=== PATIENT | female | born 1960 | race Caucasian/White ===

== ENCOUNTER 2023-03-28 09:07 | Outpatient (REF) | payer MEDICAID, SELFPAY ==
[2023-03-28 15:59] LABS: Alanine Aminotransferase 17 U/L (0-31); Albumin Level 4.3 g/dL (3.5-5.0); Alkaline Phosphatase 54 U/L (39-117); Anion Gap 16 (12-20); Aspartate Amino Transferase 16 U/L (5-31); Bilirubin Total 0.5 mg/dL (0.0-1.0); Blood Urea Nitrogen 12 mg/dL (9-16); Calcium 9.3 mg/dL (8.4-10.2); Carbon Dioxide 27 mmol/L (22-29); Chloride 105 mmol/L (96-108); Cholesterol 249 mg/dL; Estimated Glomerular Filt Rate > 60; Glucose Fasting 88 mg/dL (60-99); HDL Cholesterol 61 mg/dL; LDL Cholesterol Calculated 153 mg/dl; Potassium 4.3 mmol/L (3.3-5.1); Sodium 144 mmol/L (135-145); Total Protein 7.3 g/dL (6.5-8.0); Triglycerides 178 mg/dL
== END 2023-03-28 09:08 | disposition home or self-care (01) ==
LOC: HO.CHCLDS 09:07
PROVIDERS: Visit Provider Internal Medicine
DX: I10 Essential (primary) hypertension (principal)
CPT/HCPCS: 36415; 80053; 80061

== ENCOUNTER 2024-03-06 09:12 | Outpatient (REF) | payer MEDICAID, SELFPAY ==
[2024-03-06 14:46] LABS: MANUAL DIFF FLAG NO
[2024-03-06 14:58] LABS: Basophils Percent Auto 0.8 % (0-2); Eosinophils Absolute Auto 0.1 X10*3/uL (0.0-0.4); Eosinophils Percent Auto 2.8 % (0-4); Hematocrit 38.7 % (37.0-47.0); Hemoglobin 12.1 g/dl (12.0-16.0); Imm Gran Abs Auto 0.01 X10*3/uL (0.00-0.03); Imm Gran Pct Auto 0.3 % (0.0-0.4); Lymphocytes Absolute Auto 2.2 X10*3/uL (1.2-4.9); Lymphocytes Percent Auto 55.8 % (20-40); Mean Corpuscular HGB Conc 31.3 g/dl (31.0-35.0); Mean Corpuscular Hemoglobin 24.4 pg (27.0-33.0); Mean Corpuscular Volume 78.2 fL (80.0-98.0); Mean Platelet Volume 10.6 fL (9.4-12.3); Monocytes Absolute Auto 0.4 X10*3/uL (0.1-1.2); Neutrophils Absolute Auto 1.3 x10*3/uL (2.0-8.3); Neutrophils Percent Auto 31.3 % (45-73); Platelet Count 380 X10*3/uL (160-400); Red Blood Count 4.95 X10*6/uL (4.20-5.50); Red Cell Distribution Width 13.9 % (11.0-16.0)
[2024-03-06 15:27] LABS: Alanine Aminotransferase 18 U/L (0-31); Albumin Level 4.3 g/dL (3.5-5.0); Alkaline Phosphatase 55 U/L (39-117); Anion Gap 11 (12-20); Aspartate Amino Transferase 16 U/L (5-31); Bilirubin Total 0.4 mg/dL (0.0-1.0); Blood Urea Nitrogen 13 mg/dL (9-16); Calcium 9.4 mg/dL (8.4-10.2); Carbon Dioxide 30 mmol/L (22-29); Chloride 105 mmol/L (96-108); Cholesterol 210 mg/dL (<200); Estimated Glomerular Filt Rate > 60; Glucose Random 126 mg/dL (60-115); HDL Cholesterol 55 mg/dL (>40); LDL Cholesterol Calculated 127 mg/dL (<100); Potassium 3.8 mmol/L (3.3-5.1); Sodium 142 mmol/L (135-145); Total Protein 7.2 g/dL (6.5-8.0); Triglycerides 140 mg/dL (<150)
[2024-03-06 15:29] LABS: TSH reflex Free T4 0.24 uIU/mL (0.32-4.0)
[2024-03-06 16:33] LABS: Free T4 (Free Thyroxine) 0.91 ng/dL (0.71-1.85)
== END 2024-03-06 09:13 | disposition home or self-care (01) ==
LOC: HO.CHCLDS 09:12
PROVIDERS: Visit Provider Internal Medicine
DX: I10 Essential (primary) hypertension (principal)
CPT/HCPCS: 36415; 80053; 80061; 84439; 84443; 85025

== ENCOUNTER 2024-05-09 08:39 | Outpatient (AMB) | payer MEDICARE, MEDICAID, SELFPAY ==
--- NOTE | 2024-05-09 07:51 | MHC.OFFVIS ---
Intake Visit Reasons: Former Smoker HPI HPI Former Smoker: Details: Initial visit for this 63yo former smoker with a 50+PYH. Patient started smoking at age 19 for 39 years at 1.5ppd. She quit in 2019. . Denies marijuana use. Denies second hand smoke exposure. Denies exposure to chemicals or substances like asbestos. . Denies known family history of lung cancer. Denies personal history of cancers. Denies chest CT in last year. . Denies recent travel outside the [place]. Denies recent respiratory illness or recent hospitalization for respiratory issues. Denies testing positive for COVID. Admits receiving COVID Vaccine. x 3. . Denies fever, chills, new/worsening cough, hemoptysis, hoarseness or dysphagia. Denies significant chest pain, significant dyspnea or unintentional weight loss. Patient Lung Cancer Screening Questionnaire reviewed with patient by provider. . Shared Decision Making Completed. Patient meets criteria. Discussed in detail with patient, the risk vs benefit of LDCT screening. Patient consents to proceed with scan. Discussed smoking cessation. PFSH Medical History (Updated 05/09/24 @ 09:06 by Georgiana Mixon PA-C) Hypertension Personal history of nicotine dependence Surgical History (Updated 05/09/24 @ 08:58 by Georgiana Mixon PA-C) History of pubovaginal sling Social History (Updated 05/09/24 @ 09:06 by Georgiana Mixon PA-C) Patient Tobacco Use Status: Former Tobacco user Years Smoked: (onset 19yo, 1.5ppd x 39yrs, 50+PYH, quit 2019) Assessment & Plan Assessment & Plan (1) Personal history of nicotine dependence: Comment: (onset 19yo, 1.5ppd x 39yrs, 50+PYH, quit 2019) Code(s): Z87.891 - Personal history of nicotine dependence Category: Medical Plan: - SDM visit completed today in office. - Patient meets criteria for LDCT for lung cancer screening purposes and is asymptomatic. - Smoking cessation counseling offered. Patients can always call [phone]. - Will arrange for a LDCT scan of the chest for screening purposes at [facility]. - Risks, benefits, and alternatives were discussed in detail and the patient agrees to proceed. - Risks discussed include but are not limited to: radiation exposure, anxiety during testing and while awaiting results, false negatives, false positives and possibility of additional intervention such as further imaging or surgical procedures for benign disease. - Benefits are obviously detection of lung cancer at an early stage which can lead to improved outcomes. - Discussed the importance of screening program compliance with adherence to yearly LDCT scan as scheduled - or sooner interval scans for personalized screening regimen. - Discussed follow up plan. Our office will send a letter discussing results and if needed set up phone call and office visit based on CT findings. - Patient educated on results categorization and the management decisions for suspicious findings potentially found on the screening LDCT scan. Any patient with a Lung RADS score of 3 or 4 will be reviewed by a multidisciplinary team at [facility] to form a plan of action in regards to scan findings. - If further work up is warranted for a suspicious lung finding this will be followed by the Lung Cancer Screening program in conjunction with the Thoracic Surgery Department at [facility]. - A copy of the office note and LDCT will be sent to the patient's PCP - as well as documentation on any associated further plans of care. - Incidental findings on LDCT are the PCP's responsibility. These findings are indicated with an S finding on the LDCT Assessment. A note discussing the findings will be sent to the PCP who is then responsible for further management. - All questions answered.? Coding Level of Care Code Lung Cancer Screening G0296 Diagnoses Personal history of nicotine dependence Z87.891
== END 2024-05-09 09:38 | disposition home or self-care (01) ==
PROVIDERS: PCP Internal Medicine; Visit Provider Physician Assistant Medical
DX: Z87.891 Personal history of nicotine dependence (principal)
CPT/HCPCS: G0296

== ENCOUNTER 2024-05-09 09:05 | Outpatient (REF) | payer MEDICARE, MEDICAID, SELFPAY ==
--- NOTE | ~2024-05-09 | CT_ITS ---
EXAMINATION: CT LOW-DOSE SCREENING CHEST WITHOUT CONTRAST CLINICAL INFORMATION: Personal history of nicotine dependence. The patient has a 117 pack-year history of smoking, having quit 5 years ago. COMPARISON: None available. TECHNIQUE: Multidetector volumetric CT imaging of the chest is performed on a Siemens SOMATOM Definition scanner without contrast using low dose technique. Additional 2D coronal and sagittal reformatted images and axial 3D maximum intensity projection (MIP) images are generated on the CT workstation. This CT examination was performed using dose optimization techniques as appropriate, variously including the following: *Automated exposure control. *Adjustment of mA and/or kV according to patient size (this includes techniques or standardized protocols for targeted exams where dose is matched to indication/reason for exam; i.e. extremities or head). *Use of iterative reconstruction technique. TOTAL EXAM DLP: 69 mGy-cm. CTDIvol: 2.13 mGy. FINDINGS: PULMONARY NODULES: 3 small punctate nodules are seen, none over 3 mm in size 07/07/2024. No suspicious pulmonary nodules. LUNGS: Lungs bilaterally symmetrically expanded. There is mild emphysema and bronchial thickening. No effusion or pneumothorax. Central airways patent. MEDIASTINUM: No mediastinal, hilar or axillary adenopathy or free fluid collection. CORONARY ARTERY CALCIFICATION: None visualized on this study. THYROID GLAND: Unremarkable to the extent seen. CARDIOVASCULAR STRUCTURES: Aortic and heart size normal. No pericardial effusion. CHEST WALL/AXILLA: Unremarkable. Large calcifications seen in the right breast. UPPER ABDOMEN: There is hepatic steatosis. Included portions of the solid organs in the upper abdomen otherwise unremarkable on noncontrast imaging. OSSEOUS STRUCTURES: No suspicious focal findings. CT/CT lung screening IMPRESSION: No findings seen suspicious for malignancy. ASSESSMENT: 1. Lung-RADS Category 2: Benign appearance or behavior of nodules. N/A. 2. Lung-RADS Category S: Negative. There are no clinically significant or potentially clinically significant findings not related to the lungs requiring urgent additional evaluation. RECOMMENDATION: Continued routine annual low-dose CT lung screening in 1 year is recommended. An order for CT CHEST LOW DOSE CANCER SCREENING ([id number]) can be placed. Electronically signed by: Esau Diego MD 07/08/2024 11:36 PM [facility]
== END 2024-05-09 09:06 | disposition home or self-care (01) ==
LOC: HO.CT 09:05
PROVIDERS: PCP Internal Medicine; Visit Provider Physician Assistant Medical
DX: Z12.2 Encounter for screening for malignant neoplasm of respiratory organs (principal); Z87.891 Personal history of nicotine dependence
CPT/HCPCS: 71271; G0296

== ENCOUNTER 2024-11-20 08:23 | Outpatient (REF) | payer MEDICARE, MEDICAID, SELFPAY ==
[2024-11-20 14:17] LABS: Basophils Percent Auto 0.8 % (0-2); Eosinophils Absolute Auto 0.1 X10*3/uL (0.0-0.4); Eosinophils Percent Auto 2.9 % (0-4); Hematocrit 38.2 % (37.0-47.0); Hemoglobin 11.9 g/dl (12.0-16.0); Lymphocytes Absolute Auto 2.4 X10*3/uL (1.2-4.9); MANUAL DIFF FLAG SCAN; Mean Corpuscular HGB Conc 31.2 g/dl (31.0-35.0); Mean Corpuscular Hemoglobin 24.1 pg (27.0-33.0); Mean Corpuscular Volume 77.3 fL (80.0-98.0); Mean Platelet Volume 10.2 fL (9.4-12.3); Monocytes Absolute Auto 0.4 X10*3/uL (0.1-1.2); Monocytes Percent Auto 11.5 % (2-11); Neutrophils Absolute Auto 0.9 x10*3/uL (2.0-8.3); Neutrophils Percent Auto 22.8 % (45-73); Platelet Count 356 X10*3/uL (160-400); Red Blood Count 4.94 X10*6/uL (4.20-5.50); Red Cell Distribution Width 14.1 % (11.0-16.0); SCAN SMEAR FLAG 1; White Blood Count 3.8 X10*3/uL (4.8-10.8)
[2024-11-20 14:41] LABS: Alanine Aminotransferase 17 U/L (0-31); Albumin Level 4.2 g/dL (3.5-5.0); Anion Gap 9 (12-20); Aspartate Amino Transferase 21 U/L (5-31); Bilirubin Total 0.4 mg/dL (0.0-1.0); Blood Urea Nitrogen 13 mg/dL (9-16); Carbon Dioxide 28 mmol/L (22-29); Chloride 108 mmol/L (96-108); Cholesterol 200 mg/dL (<200); Estimated Glomerular Filt Rate > 60; Glucose Random 98 mg/dL (60-115); HDL Cholesterol 61 mg/dL (>40); LDL Cholesterol Calculated 120 mg/dL (<100); Potassium 3.8 mmol/L (3.3-5.1); Sodium 141 mmol/L (135-145); Total Protein 6.8 g/dL (6.5-8.0); Triglycerides 98 mg/dL (<150)
[2024-11-20 14:52] LABS: Alkaline Phosphatase 54 U/L (39-117)
[2024-11-20 14:56] LABS: SLIDE REVIEW VERIFIED
== END 2024-11-20 08:24 | disposition home or self-care (01) ==
LOC: HO.CHCLDS 08:23
PROVIDERS: Visit Provider Internal Medicine
DX: I10 Essential (primary) hypertension (principal)
CPT/HCPCS: 36415; 80053; 80061; 85025

== ENCOUNTER 2024-11-26 08:19 | Outpatient (REF) | payer MEDICARE, MEDICAID, SELFPAY ==
--- OUTSIDE RECORDS SUMMARY | 2024-11-26 08:30 | XMS_ITS | Encounter Summary ---
Author Organization [facility] Address [address] [place] [address] Care Team Providers Care Net Developer Contract Name Role Phone Enrico Jesus MD Primary Care Prov ider Encounter Details Date Type Department Care Team (Latest Contact Info) Description 10/02/2018 Abstract [facility] CONVERSIONS Dental, Provider, DDS Social History Tobacco Use Types Packs/Day Years Used Date Smoking Tobacco: Never Assessed Comments Unknown Sex and Gender Information Value Date Recorded Sex Assigned at Female 06/26/2022 10:34 AM EDT Legal Sex Female 10:34 AM EDT Gender Identity Female 06/26/2022 10:34 AM EDT Sexual Orientation Straight 06/26/2022 10 :34 AM EDT documented as of this encounter Plan of Treatment Upcoming Encounters Date Type Department Care Team (Late st Contact Info) Description 02/02/2025 9:30 AM EDT Office Visit [facility] MED & PEDS [address] [place] [address] Enrico Jesus MD [address] [place] [address] documented as of this encounter Visit Diagnoses Not on filedocumented in this encounter Care Teams Net Developer Contract Relationship Specialty Start Date End Date Enrico Jesus MD [address] [place] [address] PCP - General Internal Medicine 11/05/19 documented as of this encounter
--- OUTSIDE RECORDS SUMMARY | 2024-11-26 08:30 | XMS_ITS | Encounter Summary ---
Author Organization [employer] Address [address] [facility] 7t [place] [address] Care Team Providers Care Pasteurizer Name Role Phone Enrico Jesus MD Primary Care Prov ider Reason for Visit * Reason Comments Med Refill Encounter Details Date Type Department Care Team ([facility] st Contact Info) Description 08/04/2024 Refill [facility] CH[facility] MED & PEDS [address] [place], [place] [phone] Enrico Jesus MD [address] [place] [address] Social History Tobacco Use Types Packs/Day Years Used Date Smoking Tobacco: Former Cigarettes 2016 Smokeless Tobacco: Never Alcohol Use Standard Drinks/Week Comments Never 0 (1 standard drink = 0.6 oz pur e alcohol) Alcohol Answer Date Recorded Frequency of Alcohol Consumption Not on file 06/23/2024 Average Number of Drinks Not on file 024 Frequency of Binge Drinking Not on file 05/28 Score 0 06/23/2024 Depression Answer Date Recorded Patient Health Questionnaire-9 Score 0 12/12/2023 Patient Health Questionnaire-9 Score 0 12/12/2023 Last PHQ-9: Questionnaire Data Not on file 0 12/12/2023 Housing Stability Answer Date Recorded What is your housing situation today? I have rolando aguilera 12/12/[address] you li ve. Do you have problems with any of the following? None of the above 12/12/2023 Food Insecurity Answer Date Recorded Within the past 12 months, y ou worried that your food would run out before you got money to buy more: Never True 12/12/2023 Within the past 12 months,th e food you bought just didn't last and you didn't have enough money to get more: Never True Transportation Answer Date Recorded In the past 12 months, has l ack of transportation kept you from medical appts, meetings, work or from getting things needed for daily living? No 12/12/2023 Utilities Answer Date Recorded In the past 12 months, has t he electric, gas, oil or water company threatened to shut off services in your home? No 12/12/2023 Depression Answer Date Recorded Patient Health Questionnaire-2 Score 0 12/12/2023 Comments Unknown Sex and Gender Information Value [...] Description 02/02/2025 9:30 AM EDT Office Visit [facility] CH[facility] MED & PEDS [address] [place] [address] Enrico Jesus MD [address] [place] [address] documented as of this encounter Visit Diagnoses Not on filedocumented in this encounter Additional Health Concerns Assessment Noted Time PHQ-9 Depression Total Score: 0 12/12/19 24 9:32 AM EDT documented as of this encounter Care Teams Pasteurizer Relationship Specialty Start Date End Date Enrico Jesus MD [address] [place] [address] PCP - General Internal Medicine 11/05/19 documented as of this encounter
--- OUTSIDE RECORDS SUMMARY | 2024-11-26 08:30 | XMS_ITS | Encounter Summary ---
Author Organization [employer] Address [address] [place] [address] Care Team Providers Care Sales And Service Engineer Name Role Phone Enrico Jesus MD Primary Care Prov ider Encounter Details Date Type Department Care Team ([facility] Contact Info) Description 11/21/2024 Orders Only [facility] CHC MED & PEDS [address] [place], [place] [phone] Enrico Jesus MD [address] [place] [address] Social History Tobacco Use Types Packs/Day Years [...] Description 02/02/2025 9:30 AM EDT Office Visit [facility] MED & PEDS [address] [place] [address] Enrico Jesus MD [address] [place] [address] documented as of this encounter Visit Diagnoses Not on filedocumented in this encounter Additional Health Concerns Assessment Noted Time PHQ-9 Depression Total Score: 0 12/12/19 24 9:32 AM EDT documented as of this encounter Care Teams Sales And Service Engineer Relationship Specialty Start Date End Date Enrico Jesus MD [address] [place] [address] PCP - General Internal Medicine 11/05/19 documented as of this encounter
--- OUTSIDE RECORDS SUMMARY | 2024-11-26 08:30 | XMS_ITS | Encounter Summary ---
Author Organization [employer] Address [address] [facility] [address] [place] [address] Care Team Providers Care Evening Or Night Nurse Supervisor Name Role Phone Enrico Jesus MD Primary Care Prov ider Reason for Visit * Reason Onset Date Comments FYI 12/12/2023 Encounter Details Date Type Department Care Team ([facility] Contact Info) Description 12/12/2023 Telephone [facility] CHC MED & PEDS [address] [place] [address] Enrico Jesus MD [address] [place] [address] FYI Social History Tobacco Use Types Packs/Day Years Used Date Smoking Tobacco: Former Cigarettes 2016 Smokeless Tobacco: Never Alcohol Use Standard Drinks/Week Comments Never 0 (1 standard drink = 0.6 oz pur e alcohol) Depression Answer Date Recorded Patient Health Questionnaire-9 [...] AM EDT documented as of this encounter Miscellaneous Notes * Telephone Encounter - Monik Gauthier RN - 01/23/2024 9:36 AM EDT TC X1 to pt to inform of need to schedule and appt with PCP to discuss wegovy. LVM to return call to nurses. * Telephone Encounter - Carly Vu - 12/12/2023 3:19 PM EDT Tc from pt calling in regards to wegovy discuss during tele appointment today (12/11). [facility] and was advised insurance will cover medication. documented in this encounter Plan of Treatment Upcoming Encounters Date Type Department Care Team (Late st Contact Info) Description 02/02/2025 9:30 AM EDT Office Visit [facility] MED & PEDS [address] [place] [address] Enrico Jesus MD [address] [place] [address] documented as of this encounter Visit Diagnoses Not on filedocumented in this encounter Additional Health Concerns Assessment Noted Time PHQ-9 Depression Total Score: 0 12/12/19 24 9:32 AM EDT documented as of this encounter Care Teams Evening Or Night Nurse Supervisor Relationship Specialty Start Date End Date SolizEnrico James MD [address] [place] [id number] PCP - General Internal Medicine 11/05/19 documented as of this encounter
--- OUTSIDE RECORDS SUMMARY | 2024-11-26 08:30 | XMS_ITS | Encounter Summary ---
Author Organization [employer] Address [address] [facility] [address] [place] [address] Care Team Providers Care Order Worker Name Role Phone Enrico Jesus MD Primary Care Prov ider Reason for Visit * Reason Onset Date Comments PA 03/17/2024 Encounter Details Date Type Department Care Team ([facility] Contact Info) Description 03/17/2024 Telephone [facility] CHC MED & PEDS [address] [place], [place] [phone] Enrico Jesus MD [address] [place] [address] PA Social History Tobacco Use Types Packs/Day Years [...] encounter Miscellaneous Notes * Telephone Encounter - Madison Mo LPN - 03/24/2024 10:53 AM EDT Pa was denied and Scanned into media for review , Sending to pcp for FYI Tc from pt calling to inform received a letter that a PA for medication Semaglutide-Weight Management (Wegovy) 0.25 MG/0.5ML solution auto-injector is needed. * Telephone Encounter - Alona Maradiaga - 03/17/2024 10:13 AM EDT Tc from pt calling to inform received a letter that a PA for medication Semaglutide-Weight Management (Wegovy) 0.25 MG/0.5ML solution auto-injector is needed. documented in this encounter Plan of Treatment Upcoming Encounters Date Type Department Care Team (Late st Contact Info) Description 02/02/2025 9:30 AM EDT Office Visit [facility] CHC MED & PEDS [address] [place], [place] [phone] Enrico Jesus MD [address] [place] [address] documented as of this encounter Visit Diagnoses Not on filedocumented in this encounter Additional Health Concerns Assessment Noted Time PHQ-9 Depression Total Score: 0 12/12/19 24 9:32 AM EDT documented as of this encounter Care Teams Order Worker Relationship Specialty Start Date End Date Enrico Jesus MD [address] [place] [address] PCP - General Internal Medicine 11/05/19 documented as of this encounter
--- OUTSIDE RECORDS SUMMARY | 2024-11-26 08:30 | XMS_ITS | Clinical Summary ---
Author Organization [facility] it[facility] Address [address] [place] [address] Care Team Providers Care Keyboard Action Assembler Name Role Phone Unavailable Primary Care Provider Unavailabl e Social History Tobacco Use Types Packs/Day Years Used Date Smoking Tobacco: Never Assessed Comments Unknown Sex and Gender Information Value Date Recorded Sex Assigned at Not on file Legal Sex Female 9:30 AM EST Gender Identity Not on file Sexual Orientation Not on file Plan of Treatment Health Maintenance Due Date Last Done Comments DTaP,Tdap,and Td Vaccines (1 - Tdap) 1981 Cervical Cancer Screening: P ap Smear 11/13/1983 Pneumococcal Vaccine: 50+ Ye ars (1 of 1 - PCV) 2012 Zoster Vaccines (1 of 2) 2012 Colorectal Cancer Screening: Colonoscopy 07/24/2022 Depression Screening 07/24/2022 HIV Screening 07/24/2022 Hepatitis C Screening 07/24/2022 Social Influencers of Health Screening 07/24/2022 COVID-19 Vaccine (1 - 2023-2 5 season) 2024 Influenza Vaccine (#1) 2024 Breast Cancer Screening 12/26/2025 12/27/2023 RSV Immunization Adult Patie nts (1 - 1-dose 75+ series) 2037 HIB Vaccines Aged Out No longer eligi ble based on patient's age to complete this topic HPV Vaccines Aged Out No longer eligi ble based on patient's age to complete this topic Hepatitis A Vaccines Aged Out No long er eligible based on patient's age to complete this topic Hepatitis B Vaccines Aged Out No long er eligible based on patient's age to complete this topic IPV Vaccines Aged Out No longer eligi ble based on patient's age to complete this topic MMR Vaccines Aged Out No longer eligi ble based on patient's age to complete this topic Meningococcal ACWY Vaccine Aged Out N o longer eligible based on patient's age to complete this topic Meningococcal B Vacine Aged Out No lo nger eligible based on patient's age to complete this topic Pneumococcal Vaccine: Pediat rics (0 to 5 Years) and At-Risk Patients (6 to 64 Years) Aged Out No longer eligi ble based on patient's age to complete this topic RSV Immunization Patients Un mallorie 20 months Aged Out No longer eligible b ased on patient's age to complete this topic Varicella Vaccines Aged Out No longer eligible based on patient's age to complete this topic Procedures Procedure Name Priority Date/Time Associated Diagnosis Comments [facility] Routine 12/27/2023 10:58 AM EDT Encounter for screening mammogram for malignant neoplasm of breast from Last 3 Months or Most Recently Relevant to Health Maintenance Results * [facility] (12/27/2023 10:58 AM EDT) Anatomical Region Laterality Modality Mammography 12/26/2023 8:18 AM EDT Narrative 12/27/2023 10:[address] [facility] Diagnostic Imaging Department [address] [place] [address] Patient: ??LUBNA MCCOY ?/Age/Sex: 1960 - 63 - F Unit#: ??[id number] ? Location/Status: ??SPDIMAM/REG CLI ? Mnemonic/Ordering Site: ??DIGSC/SPMAM Ordering Physician: ??ENRICO COOPER MD [facility] Screening Digital - 12/26/23 - 0852 Report Status:Signed EXAM: [facility] Screening Digital EXAM DATE AND TIME: 12/26/2023 8:52 AM HISTORY: ??Screening. Previous bilateral breast biopsies, pathology benign. COMPARISON: ??05/26/21, 07/09/13, 11/20/11, 09/21/11 ([facility], [place], [place]) TECHNIQUE: Bilateral digital breast tomosynthesis was performed in the CC and MLO projections. Computer aided detection with [employer] 3D 3.1 was employed. TISSUE DENSITY: b. There are scattered areas of fibroglandular density. FINDINGS: No suspicious masses, grouped microcalcifications, or areas of architectural distortion are seen. A large macrocalcification is again seen in the central right breast. There are adjacent coarse, benign calcifications, unchanged. Similar coarse, benign calcifications are seen in the medial and lateral aspects of the left breast, unchanged. Biopsy markers are present bilaterally. Vascular calcification is present. The skin is unremarkable. IMPRESSION: Stable mammographic appearance of the breasts. ??No evidence of malignancy is seen. A negative mammogram in the presence of a clinically suspicious palpable abnormality does not preclude the possibility of malignancy or alter the indications for biopsy. BI-RADS: ??Category 2: Benign RECOMMENDATION(S): 1: Routine screening mammogram BILATERAL in 1 year. Dictating Physician: ??GERI SAUER MD Electronically Signed by: ??GERI SAUER MD Dic Date/Time: ??12/27/23 1056 Sign date/Time: ??12/27/23 1058 Procedure Note Geri Sauer MD - 04/14/2024 [facility] Diagnostic Imaging Department [address] [place] [address] Patient: LUBNA MCCOY D.O.B./Age/Sex: 1960 - 63 - F Unit#: [id number] Location/Status: SPDIMAM/REG CLI Mnemonic/Ordering Site: [facility] Ordering Physician: ENRICO COOPER MD [facility] Screening Digital - 12/26/23 - 851 Report Status:Signed EXAM: [facility] Screening Digital EXAM DATE AND TIME: 12/26/2023 8:52 AM HISTORY: Screening. Previous bilateral breast biopsies, pathologybenign. COMPARISON: 05/26/21, 07/09/13, 11/20/11, 09/21/11 ([place], [place]) TECHNIQUE: Bilateral digital breast tomosynthesis was performed in the CCand MLO projections. Computer aided detection with [employer] 3D 3.1was employed. TISSUE DENSITY: b. There are scattered areas of fibroglandular density. FINDINGS: No suspicious masses, grouped microcalcifications, or areas ofarchitectural distortion are seen. A large macrocalcification is again seen in the central right breast.There are adjacent coarse, benign calcifications, unchanged. Similar coarse,benign calcifications are seen in the medial and lateral aspects of the leftbreast, unchanged. Biopsy markers are present bilaterally. Vascular calcification is present. The skin is unremarkable. IMPRESSION: Stable mammographic appearance of the breasts. No evidence of malignancyis seen. A negative mammogram in the presence of a clinically suspicious palpable abnormality does not preclude the possibility of malignancy or alter the indications for biopsy. BI-RADS: Category 2: Benign RECOMMENDATION(S): 1: Routine screening mammogram BILATERAL in 1 year. Dictating Physician: GERI SAUER MD Electronically Signed by: GERI SAUER MD Dic Date/Time: 12/27/23 1056 Sign date/Time: 12/27/23 1058 us Enrico GÓMEZ BI PROCEDURES Fin al Result from Last 3 Months or Most Recently Relevant to Health Maintenance
--- OUTSIDE RECORDS SUMMARY | 2024-11-26 08:30 | XMS_ITS | Encounter Summary ---
Author Organization [employer] Address [address] [facility] [address] [place] [address] Care Team Providers Care Electric Trucker Name Role Phone Enrico Jesus MD Primary Care Prov ider Encounter Details Date Type Department Care Team ([facility] Contact Info) Description 11/21/2024 Telephone [facility] [address], [place] [phone] Enrico Jesus MD [address] [place] [address] Social History Tobacco Use Types Packs/Day Years [...] encounter Miscellaneous Notes * Telephone Encounter - Enrico Ribeiro MD - 11/21/2024 9:24 AM EDT I called the patient to inform her about blood work results, will order additional test to characterize anemia, will call with results documented in this encounter Plan of Treatment Upcoming Encounters Date Type Department Care Team (Late st Contact Info) Description 02/02/2025 9:30 AM EDT Office Visit [facility] MED [facility] PEDS [address] [place] [address] Enrico Jesus MD [address] [place] [address] Scheduled Orders Name Type Priority Associated Diagnoses Orde r Schedule Iron And Total Iron Binding Capacity Lab Routine Iron deficiency anemia, unspecified iron deficiency anemia type Expected: 11/21/2024, Expires: 11/21/2025 Vitamin B12 (Cobalamin) and Folate Panel, Serum Lab Routine Iron deficiency anemia, unspecified iron deficiency anemia type Expected: 11/21/2024 (Approximate), Expires: 11/21/2025 documented as of this encounter Visit Diagnoses Diagnosis Iron deficiency anemia, unspecified iron deficiency anemia type- Primary documented in this encounter Additional Health Concerns Assessment Noted Time PHQ-9 Depression Total Score: 0 12/12/19 24 9:32 AM EDT documented as of this encounter Care Teams Electric Trucker Relationship Specialty Start Date End Date Enrico Jesus MD [address] [place] [id number] PCP - General Internal Medicine 11/05/19 documented as of this encounter
--- OUTSIDE RECORDS SUMMARY | 2024-11-26 08:30 | XMS_ITS | Encounter Summary ---
Author Organization [employer] Address [address] [facility] [address] [place] [address] Care Team Providers Care Haul Cane Brakeman Name Role Phone Enrico Jesus MD Primary Care Prov ider Reason for Visit * Reason Onset Date Comments New Med Request 12/13/2023 Encounter Details Date Type Department Care Team ([facility] Contact Info) Description 12/13/2023 Telephone [facility] [address] [place] [address] Enrico Jesus MD [address] [place] [address] New Med Request Social History Tobacco Use Types Packs/Day Years [...] Telephone Encounter - Monik Gauthier RN - 12/13/2023 3:32 PM EDT Message was sent to PCP for review yesterday * Telephone Encounter - Krystal Holbrook - 12/13/2023 2:18 PM EDT Tc from pt requesting script for Tera stated already spoke with [facility] and they will approve med. documented in this encounter Plan of Treatment Upcoming Encounters Date Type Department Care Team (Late st Contact Info) Description 02/02/2025 9:30 AM EDT Office Visit [facility] MED & PEDS [address] [place] [address] Enrico Jesus MD [address] [place] [address] documented as of this encounter Visit Diagnoses Not on filedocumented in this encounter Additional Health Concerns Assessment Noted Time PHQ-9 Depression Total Score: 0 12/12/19 24 9:32 AM EDT documented as of this encounter Care Teams Haul Cane Brakeman Relationship Specialty Start Date End Date Enrico Jesus MD [address] [place] [address] PCP - General Internal Medicine 11/05/19 documented as of this encounter
--- OUTSIDE RECORDS SUMMARY | 2024-11-26 08:30 | XMS_ITS | Clinical Summary ---
Author Organization [employer] Address [address] [facility] [address] [place] [address] Care Team Providers Care Commercial Account Officer Name Role Phone Enrico Jesus MD Primary Care Prov ider Allergies No known active allergies Medications clotrimazole (Lotrimin) 1 % external solution apply by topical route 2 times every day to the affected and surrounding areas of skin in the morning and evening 08/30/19 22 Active Diclofenac Sodium 1 % gel apply (2G) by topical route 3 times every day to the affected area(s) 10/28/19 20 Active lidocaine (Xylocaine) 5 % ointment apply by topical route 1 - 2 times every day to affected area(s) as needed 05/11/20 21 Active oxyCODONE-acetam inophen (Percocet) 5-325 MG tablet TAKE 1 TABLET BY MOUTH EVERY 4 TO 6 HOURS NEEDED FOR PAIN 09/21/19 23 Active terbinafine (LamISIL) 250 MG tablet TAKE 1 TABLET BY MOUTH EVERY DAY 02/25/20 22 Active meclizine (Antivert) 25 MG tablet take 1 tablet by oral route 3 times every day as needed 30 tablet 1 03/07/20 23 Active cetirizine (ZyrTEC) 10 MG tabletIndication s:Seasonal allergies TAKE 1 TABLET BY MOUTH EVERY MORNING 30 tablet 11 04/29/20 24 Active amLODIPine (Norvasc) 5 MG tabletIndication s:Primary hypertension Take 1 tablet (5 mg) by mouth Once per day. 90 tablet 3 05/08/20 24 025 Active hydroCHLOROthiaz lola 12.5 MG tabletIndication s:Primary hypertension TAKE 1 TABLET(12.5 MG) BY MOUTH IN THE MORNING 90 tablet 1 05/08/20 24 Active senna (Senokot) 8.6 MG tablet TAKE 1 TABLET BY MOUTH TWICE DAILY 180 tablet 08/04/20 24 Active topiramate 50 MG tablet TAKE 1 TABLET BY MOUTH DAILY 60 tablet 3 09/02/19 25 Active phentermine 15 MG capsule Take 1 capsule (15 mg) by mouth before breakfast. 90 capsule 09/04/19 25 025 Active omeprazole (PriLOSEC) [address] capsule TAKE 1 CAPSULE BY MOUTH DAILY 90 capsule 09/18/19 25 Active ibuprofen 800 MG tablet TAKE 1 TABLET(800 MG) BY MOUTH THREE TIMES DAILY 90 tablet 10/15/19 25 Active Semaglutide-Weig ht Management (Wegovy) 0.25 MG/0.5ML solution auto-injector Inject 0.25 mg under the skin 1 (one) time per week. 4 mL 1 03/06/20 24 025 Discontin ued(Thera py completed ) Active Problems Problem Noted Date Diagnosed Date Class 3 severe obesity due t o excess calories with serious comorbidity and body mass index (BMI) of 45.0 to 49.9 in adult 03/06/2024 Assessment & Plan (10/30/2024 9:55 AM EST): Patient refer is weighting around 240, no side effects reported, continue current treatment, encouraged exercise and to keep a low calorie intake, follow up in 3 months Assessment & Plan (06/23/2024 9:39 AM EDT): Patient tolerating phetermine and topamax, has lost 10lbs, continue current treatment, follow up in 3 months Assessment & Plan (05/29/2024 2:58 PM EDT): Wegovy was not approved, will provide phentermine with toiramate, risk vs benefits discussed, will follow up in 6 weeks Assessment & Plan (03/10/2024 2:44 PM EDT): BMI 46, patient with multiple joint arthritis, hypertension on 2 medications, will start on wegovy that help with cardiovascular diasease and decreases complication associated with it, risk vs benefits were discussed, will send PA for approval Screening for lung cancer 12/12/2023 Assessment & Plan (03/06/2024 8:57 AM EDT): Will task ma for lung cancer screening Assessment & Plan (12/12/2023 10:26 AM EDT): Patient will call insurance to verify if GLP1 is covered Chronic pain of both shoulders 05/15/2023 Assessment & Plan (05/15/2023 10:25 PM EDT): Chronic bilateral shoulder pain, patient is requesting a chiropractor referral, order will be placed Pain of toe of left foot 11/20/2022 Assessment & Plan (12/27/2022 4:45 PM EDT): Denied recent trauma, will order left foot xray, told to apply ice, rest joint, may use menthol based creams, follow up with specialist Assessment & Plan (11/20/2022 9:03 AM EDT): Patient underwent left 2nd toe surgery 2 months ago, patient refers pain to movement, unable to bear weight, mild swelling, no erythema, will refer to podiatry for reevaluation Elevated cholesterol 09/26/2022 Assessment & Plan (09/26/2022 10:26 AM EST): Las showed elevated cholesterol/ldl, patient restarted low fat diet and exercise, will repeat labs in 3-4 months, if still elevated and ascvd risck score >5.0% will start statin therapy Subclinical hyperthyroidism 09/26/2022 Assessment & Plan (09/26/2022 10:26 AM EST): Patient asymptomatic, will repeat labs in 3-4 months Primary hypertension 09/15/2022 Assessment & Plan (10/30/2024 9:55 AM EST): Controlled, continue current therapy, keep low sodium diet and exercise as tolerated Assessment & Plan (06/23/2024 9:38 AM EDT): Controlled, continue current therapy, reinfiorced low sodium diet Assessment & Plan (05/29/2024 2:57 PM EDT): Controlled, no changes will be made, keep low sodium diet and exercise as tolerated, keep bp log, target <140/90 Assessment & Plan (03/06/2024 8:55 AM EDT): Repeated was 134/86, at home remains below 140/90, continue same treatment Assessment & Plan (12/12/2023 10:24 AM EDT): Controlled, contnue amlodipine and hydrochlorothiazide, keep low sodium diet and exercise as tolerated Assessment & Plan (08/30/2023 12:50 PM EST): Controlled, on amlodipine and hydrochlorothiazide, continue low sodium diet and exercise as tolerated, follow up in 3-4 months Assessment & Plan (06/14/2023 1:58 PM EDT): Controlled, no changes will be made, reinforced low sodium diet and exercise as tolerated bp target <140/90 Assessment & Plan (03/26/2023 11:43 AM EDT): Controlled, on amlodipine and hydrochlorothiazide, no changes will be made reinforced low sodium diet. New labs will be ordered, will follow up in 3 months Assessment & Plan (12/27/2022 4:45 PM EDT): Controlled, continue current treatment, reinforced low sodium diet and exercise as tolerated Assessment & Plan (09/15/2022 9:48 AM EST): Controlled, continue amlodipine and hydrochlorothiazide, reinforced low sodium diet and exercise as tolerated Seasonal allergies 09/15/2022 Assessment & Plan (09/15/2022 9:49 AM EST): Will prescribe cetirizine Encounter for screening mamm ogram for malignant neoplasm of breast 09/15/2022 Assessment & Plan (12/12/2023 10:25 AM EDT): Will sedn new order for breat mammogram Assessment & Plan (09/15/2022 9:49 AM EST): Will place order for mammogram Slow transit constipation 09/15/2022 Assessment & Plan (11/20/2022 9:03 AM EDT): Will add senna, increase fiber, maintain well hydrated Assessment & Plan (09/15/2022 9:48 AM EST): Told to increase fiber in diet, will prescribe docusate Screening for colon cancer 09/15/2022 Assessment & Plan (06/14/2023 1:57 PM EDT): Will send cologuard risk vs benefits discussed Assessment & Plan (09/15/2022 9:49 AM EST): Patient refused colonoscopy, will order IFOBT, risk vs benefits discussed Ankle pain 10/15/2018 Backache 10/15/2018 Knee pain 10/15/2018 Encounters Date Type Department Care Team Description 11/21/2024 Telephone [facility] PEDS [address] [place] [address] Enrico Jesus MD 11/21/2024 Orders Only [facility] PEDS [address] [place] [address] Enrico Jesus MD 11/14/2024 Telephone [facility] MEDICINE [address] [place] [phone] Enrico Jesus MD FYI 10/30/2024 9:45 AM EST Telemedicine [facility] P[facility] [address] [place] [address] Enrico Jesus MD Primary hypertension (Primary Dx); Class 3 severe obesity due to excess calories with serious comorbidity and body mass index (BMI) of 45.0 to 49.9 in adult ([facility]) 10/30/2024 Travel 10/28/2024 Telephone [facility]S [address] [place] [address] Enrico Jesus MD chart prep 10/14/2024 Refill [facility] [address] [place] [address] Enrico Jesus MD 09/18/2024 Refill [facility] [address] [place] [address] Enrico Jesus MD 09/04/2024 Refill [facility] MEDICINE [address] [place] [address] Enrico Jesus MD 09/02/2024 Refill [facility] [address] [place] [address] Enrico Jesus MD from Last 3 Months Immunizations Name Administration Dates Next Due Influenza injectable quadrivalent preservative f ree 06/08/2020 Tdap 10/28/2019,06/13/2013 Zoster, Recombinant 01/21/2021,10/28/2019 Social History Tobacco Use Types Packs/Day Years Used Date Smoking Tobacco: Former Cigarettes 1 - 2016 Smokeless Tobacco: Never Tobacco Cessation:Counseling Given: Not Answered Alcohol Use Standard Drinks/Week Comments Never 0 [...] Orientation Straight 06/26/2022 10 :34 AM EDT Last Filed Vital Signs Vital Sign Reading Time Taken Comments Blood Pressure 120/74 10/30/2024 9:42 AM EST Pulse 72 10/30/2024 9:42 AM EST Temperature 37.1 ??C (98.7 ??F) 05/08/2024 3:32 PM ED T Respiratory Rate 16 05/08/2024 3:32 PM EDT Oxygen Saturation 97% 03/06/2024 8:35 AM EDT Inhaled Oxygen Concentration - - Weight 119 kg (263 lb) 05/08/2024 3:32 PM EDT Height 157.5 cm (5' 2 ) 05/08/2024 3:32 PM EDT Body Mass Index 48.1 05/08/2024 3:32 PM EDT Plan of Treatment Upcoming Encounters Date Type Department Care Team (Late st Contact Info) Description 02/02/2025 9:30 AM EDT Office Visit [facility] PEDS [address] [place] [address] Enrico Jesus MD [address] [place] [address] Health Maintenance Due Date Last Done Comments CT Colonography 1960 Colonoscopy 1960 FIT 1960 FOBT 1960 Sigmoidoscopy 1960 Pneumococcal Vaccine: 50+ Years (1 of 1 - PCV) 2012 Mammogram 09/16/2020 09/16/2018 RSV Patients and Patients Aged 60 years or older (1 - Risk 60-74 years 1-dose series) 2022 COVID-19 Vaccine (4 - season) 2024 08/15/2021, 03/19/2021, 02/26/2021 Influenza Vaccine (#1) 2024 05/25/2023, 2019 Depression Screening 12/11/2024 12/12/2023, 12/12/19 SDOH Screening 12/11/2024 12/12/2023 Lung Cancer Screening 05/09/2025 05/09/2024 Alcohol/Substance Use Screening 06/23/2025 06/23/2024 Tobacco Screening 10/30/2025 10/30/2024 Cervical Cancer Screening 03/22/2026 HPV/Cotest 03/22/2026 03/22/2021 Pap Smear 03/22/2026 03/22/2021 Colorectal Cancer Screening 06/20/2026 FIT DNA/Cologuard 06/20/2026 06/20/2023 DTaP/Tdap/Td Vaccines (3 - Td or Tdap) 10/27/2029 10/28/2019, 06/13/2013 Lipid Panel 11/20/2029 11/20/2024, 0708/2023, 03/28/2023, Additional history exists Zoster Vaccines Completed 01/21/2021, 10/28/2019 HIV Screening Completed 09/19/2022, 10/28/2019 Hepatitis C Screening Completed 09/19/2022 HIB Vaccines Aged Out No longer eligi [...] patient's age to complete this topic Meningococcal Vaccine Aged Out No karen ramakrishna eligible based on patient's age to complete this topic RSV under 20 months Aged Out No longe r eligible based on patient's age to complete this topic Rotavirus Vaccines Aged Out No longer eligible based on patient's age to complete this topic Procedures Procedure Name Priority Date/Time Associated Diagnosis Comments SLIDE REVIEW Routine 11/20/2024 8:26 AM EDT CBC WITH AUTO DIFFERENTIAL Routine 11/20/2024 8:26 AM EDT Primary hypertension LIPID PANEL, STANDARD Routine 11/20/2024 8:26 AM EDT Primary hypertension COMPREHENSIVE METABOLIC PANEL Routine 11/20/2024 8:26 AM EDT Primary hypertension LDCT LUNG SCREENING Routine 05/09/2024 9 :53 AM EDT LAB COLOGUARD?? COLON CANCER SCREEN Routine 06/20/2023 7:35 PM EDT Screening for colon cancer HEPATITIS C AB W/REFL TO HCV RNA, QN, PCR Routine 09/19/2022 9:07 AM EST Primary hypertension HIV 1 RNA, QN PCR W/RFL JUSTINA (RTI,PI,INTEGRASE) Routine 09/19/2022 9:07 AM EST Primary hypertension HPV MRNA E6/E7 Routine 03/22/2021 1:03 PM EDT THINPREP PAP Routine 03/22/2021 1:03 PM EDT BI MAMMOGRAM SCREENING BILATERAL Routine 09/16/2018 8:13 AM EST from Last 3 Months or Most Recently Relevant to Health Maintenance Results * Slide Review (11/20/2024 8:26 AM EDT) Slide Review VERIFIED [facility] 11/20/2024 8:26 AM EDT 11/20/2024 2:03 PM EDT Enrico Ribeiro MD LAB BLOOD ORDERABL ES Final Result [facility] [address], [place] [phone] * (ABNORMAL) CBC auto differential (11/20/2024 8:26 AM EDT) White Blood Count 3.8(L) 4.8 - 10.8 X10*3/uL [facility] Red Blood Count 4.94 4.20 - 5.50 X10*6/uL [facility] Hemoglobin 11.9(L) 12.0 - 16.0 g/dl [facility] Hematocrit 38.2 37.0 - 47.0 % [facility] Mean Corpuscular Volume 77.3(L) 80.0 - 98.0 fL [facility] Mean Corpuscular Hemoglobin 24.1(L) 27.0 - 33.0 pg [facility] Mean Corpuscular HGB Conc 31.2 31.0 - 35.0 g/dl [facility] Red Cell Distribution Width 14.1 11.0 - 16.0 % [facility] Platelet Count 356 160 - 400 X10*3/uL [facility] Mean Platelet Volume 10.2 9.4 - 12.3 fL [facility] Neutrophils Percent Auto 22.8(L) 45 - 73 % [facility] Imm Gran Pct Auto 0.0 0.0 - 0.4 % [facility] Lymphocytes Percent Auto 62.0(H) 20 - 40 % [facility] Monocytes Percent Auto 11.5(H) 2 - 11 % [facility] Eosinophils Percent Auto 2.9 0 - 4 % [facility] Basophils Percent Auto 0.8 0 - 2 % [facility] NRBC Pct Auto 0.0 0.0 - 0.2 /100WBC [facility] Neutrophils Absolute Auto 0.9(L) 2.0 - 8.3 x10*3/uL [facility] Imm Gran Abs Auto 0.00 0.00 - 0.03 X10*3/uL [facility] Lymphocytes Absolute Auto 2.4 1.2 - 4.9 X10*3/uL [facility] Monocytes Absolute Auto 0.4 0.1 - 1.2 X10*3/uL [facility] Eosinophils Absolute Auto 0.1 0.0 - 0.4 X10*3/uL [facility] Basophils Absolute Auto 0.0 0.0 - 0.2 X10*3/uL [facility] NRBC Abs Auto 0.000 0.0 - 0.012 X10*3/uL [facility] Blood Venous blood specimen / Unknown 11/20/2024 8:26 AM EDT 11/20/2024 2:03 PM EDT us Enrico Ribeiro MD LAB BLOOD ORDERABL ES Edited Result - Final [facility] [address] [place] [phone] * (ABNORMAL) Lipid Panel, Standard (11/20/2024 8:26 AM EDT) Triglycerides 98 <150 mg/dL [facility] Comment:Desirable Triglyceri de: less than 150 mg/dLBorderline High Triglyceride 150-199 mg/dLHigh Triglyceride: 200-499 mg/dLVery High Triglyceride: greater than or equal to 5OO mg/dL Cholesterol 200(H) <200 mg/dL [facility] Comment:Desirable Cholestero l: less than 200 mg/dLBorderline High Cholesterol: 200-239 mg/dLHigh Cholesterol: greater than 239 mg/dL LDL Cholesterol Calculated 120(H) <100 mg/dL [facility] Comment:Desirable LDL: less than 100 mg/dLNear Optimal/Above Optimal LDL: 110- 129 mg/dLBorderline High LDL: 130-159 mg/dLHigh LDL: 160-189 mg/dLVery High LDL: greater than or equal to 190 mg/dL HDL Cholesterol 61 >40 mg/dL [facility] Comment:Desirable HDL: great er than 40 mg/dL Note: This HDL assay may give artificially low results in patients with liver disease. Blood Venous blood specimen / Unknown 11/20/2024 8:26 AM EDT 11/20/2024 2:03 PM EDT us Enrico Ribeiro MD LAB BLOOD ORDERABL ES Final Result [facility] [address] [place] [address] [phone] * (ABNORMAL) Comprehensive Metabolic Panel (11/20/2024 8:26 AM EDT) Sodium 141 135 - 145 mmol/L [facility] Potassium 3.8 3.3 - 5.1 mmol/L [facility] Chloride 108 96 - 108 mmol/L [facility] Carbon Dioxide 28 22 - 29 mmol/L [facility] Anion Gap 9(L) 12 - 20 [facility] Urea Nitrogen (BUN) 13 9 - 16 mg/dL [facility] Creatinine, Serum 0.73 0.5 - 1.4 mg/dL [facility] Estimated Glomerular Filt Rate >60 [facility] Comment:Chronic Kidney Disea se: Estimated GFR < 60 mL/min/[id number] Kidney Disease: Estimated GFR < 15 mL/min/1.73m2 Glucose 98 60 - 115 mg/dL [facility] Calcium 9.0 8.4 - 10.2 mg/dL [facility] Bilirubin, Total 0.4 0.0 - 1.0 mg/dL [facility] Aspartate Amino Transferase 21 5 - 31 U/L [facility] Alanine Aminotransferase 17 0 - 31 U/L [facility] Total Protein 6.8 6.5 - 8.0 g/dL [facility] Albumin Level 4.2 3.5 - 5.0 g/dL [facility] Alkaline Phosphatase 54 39 - 117 U/L [facility] Blood Venous blood specimen / Unknown 11/20/2024 8:26 AM EDT 11/20/2024 2:03 PM EDT us Enrico Ribeiro MD LAB BLOOD ORDERABL ES Final Result [facility] [address] [place] [address] [phone] * CT Lung Screening Low dose (05/09/2024 9:53 AM EDT) Anatomical Region Laterality Modality Lung Computed Tomogra phy 05/09/2024 9:53 AM EDT Narrative 07/08/2024 11:38 PM EST ? [facility] ?[address] ?[place] [address] ? CT Scan Report ? Signed ? Patient: Cookie Mixer Helper,Vasty E ?MR#: [id number] ? : 1960 ?Acct:[id number] ? Age/Sex: 63 / F ?ADM Date: 05/09/24 ? Loc: HO.CT ? Attending Dr: Georgiana Mixon PA-C ? Ordering Physician: Georgiana Mixon PA-C ?? Date of Service: 05/09/24 ?? Procedure(s): CT lung screening ?? Accession Number(s): [id number] ? cc: Enrico Jesus MD; Georgiana Mixon PA-C ? EXAMINATION: ?? CT LOW-DOSE SCREENING CHEST WITHOUT CONTRAST ? CLINICAL INFORMATION: ?? Personal history of nicotine dependence. The patient has a 117 ?? pack-year history of smoking, having quit 5 years ago. ? COMPARISON: ?? None available. ? TECHNIQUE: ?? Multidetector volumetric CT imaging of the chest is performed on a ?? Siemens SOMATOM Definition scanner without contrast using low dose ?? technique. Additional 2D coronal and sagittal reformatted images and ?? axial 3D maximum intensity projection (MIP) images are generated on the ?? CT workstation. ? This CT examination was performed using dose optimization techniques as ?? appropriate, variously including the following: ?? *Automated exposure control. ?? *Adjustment of mA and/or kV according to patient size (this includes ?? techniques or standardized protocols for targeted exams where dose is ?? matched to indication/reason for exam; i.e. extremities or head). ?? *Use of iterative reconstruction technique. ? TOTAL EXAM DLP: ?? 69 mGy-cm. ? CTDIvol: ?? 2.13 mGy. ? FINDINGS: ? PULMONARY NODULES: 3 small punctate nodules are seen, none over 3 mm in ?? size 07/07/2024. No suspicious pulmonary nodules. ? LUNGS: Lungs bilaterally symmetrically expanded. There is mild ?? emphysema and bronchial thickening. No effusion or pneumothorax. ?? Central airways patent. ? MEDIASTINUM: No mediastinal, hilar or axillary adenopathy or free fluid ?? collection. ? CORONARY ARTERY CALCIFICATION: None visualized on this study. ? THYROID GLAND: Unremarkable to the extent seen. ? CARDIOVASCULAR STRUCTURES: Aortic and heart size normal. No pericardial ?? effusion. ? CHEST WALL/AXILLA: Unremarkable. Large calcifications seen in the right ?? breast. ? UPPER ABDOMEN: There is hepatic steatosis. Included portions of the ?? solid organs in the upper abdomen otherwise unremarkable on noncontrast ?? imaging. ? OSSEOUS STRUCTURES: No suspicious focal findings. ? CT/CT lung screening ?? IMPRESSION: ?? No findings seen suspicious for malignancy. ? ASSESSMENT: ?? 1. Lung-RADS Category 2: Benign appearance or behavior of nodules. N/A. ? 2. Lung-RADS Category S: Negative. There are no clinically significant ?? or potentially clinically significant findings not related to the lungs ?? requiring urgent additional evaluation. ? RECOMMENDATION: ?? Continued routine annual low-dose CT lung screening in 1 year is ?? recommended. An order for CT CHEST LOW DOSE CANCER SCREENING ([id number]) ?? can be placed. ? Electronically signed by: ??Esau Diego MD ??07/08/2024 11:36 PM EST ?? RP ? Dictated By: ?Esau Diego MD ? Signed By: ?<Electronically signed by Esau Diego MD in OV> ? 07/08/24 2336 ? DD/ 0953 ? TD/TT: 05/09/24 1016 ? Methods Analyst Data Processing: SS ? Procedure Note Jesusita, Darlene - 07/08/[address] [address] [address] Scan Report Signed Patient: Angle Wallace EMR#: [id number] : 1960Acct:[id number] Age/Sex: 63 / FADM Date: 05/09/24 Loc: HO.CT Attending Dr: Georgiana Mixon PA-C Ordering Physician: Georgiana Mixon PA-C Date of Service: 05/09/24 Procedure(s): CT lung screening Accession Number(s): [id number] cc: Enrico Jesus MD; Georgiana Mixon PA-C EXAMINATION: CT LOW-DOSE SCREENING CHEST WITHOUT CONTRAST CLINICAL INFORMATION: Personal history of nicotine dependence. The patient has a 117 pack-year history of smoking, having quit 5 years ago. COMPARISON: None available. TECHNIQUE: Multidetector volumetric CT imaging of the chest is performed on a Siemens SOMATOM Definition scanner without contrast using low dose technique. Additional 2D coronal and sagittal reformatted images and axial 3D maximum intensity projection (MIP) images are generated on the CT workstation. This CT examination was performed using dose optimization techniques as appropriate, variously including the following: *Automated exposure control. *Adjustment of mA and/or kV according to patient size (this includes techniques or standardized protocols for targeted exams where dose is matched to indication/reason for exam; i.e. extremities or head). *Use of iterative reconstruction technique. TOTAL EXAM DLP: 69 mGy-cm. CTDIvol: 2.13 mGy. FINDINGS: PULMONARY NODULES: 3 small punctate nodules are seen, none over 3 mm in size 07/07/2024. No suspicious pulmonary nodules. LUNGS: Lungs bilaterally symmetrically expanded. There is mild emphysema and bronchial thickening. No effusion or pneumothorax. Central airways patent. MEDIASTINUM: No mediastinal, hilar or axillary adenopathy or free fluid collection. CORONARY ARTERY CALCIFICATION: None visualized on this study. THYROID GLAND: Unremarkable to the extent seen. CARDIOVASCULAR STRUCTURES: Aortic and heart size normal. No pericardial effusion. CHEST WALL/AXILLA: Unremarkable. Large calcifications seen in the right breast. UPPER ABDOMEN: There is hepatic steatosis. Included portions of the solid organs in the upper abdomen otherwise unremarkable on noncontrast imaging. OSSEOUS STRUCTURES: No suspicious focal findings. CT/CT lung screening IMPRESSION: No findings seen suspicious for malignancy. ASSESSMENT: 1. Lung-RADS Category 2: Benign appearance or behavior of nodules. N/A. 2. Lung-RADS Category S: Negative. There are no clinically significant or potentially clinically significant findings not related to the lungs requiring urgent additional evaluation. RECOMMENDATION: Continued routine annual low-dose CT lung screening in 1 year is recommended. An order for CT CHEST LOW DOSE CANCER SCREENING ([id number]) can be placed. Electronically signed by: Esau Diego MD 07/08/2024 11:36 PM EST RP Dictated By: Esau Diego MD Signed By: <Electronically signed by Esau Diego MD in OV> 07/08/24 2336 DD/ 0953 TD/TT: 05/09/24 1016 Methods Analyst Data Processing: LEONARDO [facility] External Provider IMG CT PROCEDURES Edited Result - Final * Cologuard?? colon cancer screening (06/20/2023 7:35 PM EDT) Cologuard Result Negative Negative 06/30/20 6:51 PM EDT [employer] (CLIA #:[id number]) Comment: NEGATIVE TEST RESULT. A negative Cologuard result indicates a low likelihood that a colorectal cancer (CRC) or advanced adenoma (adenomatous polyps with more advanced pre-malignant features) ??is present. The chance that a person with a negative Cologuard test has a colorectal cancer is less than 1 in 1500 (negative predictive value >99.9%) or has an ??advanced adenoma is less than ??5.3% (negative predictive value 94.7%). These data are based on a prospective cross-sectional study of 10,000 individuals at average risk for colorectal cancer who were screened with both Cologuard and colonoscopy. (Swathi Garvey al, N Engl J Med 2014;370(14):1286- 1297) The normal value (reference range) for this assay is negative. COLOGUARD RE-SCREENING RECOMMENDATION: Periodic colorectal cancer screening is an important part of preventive healthcare for asymptomatic individuals at average risk for colorectal cancer. ??Following a negative Cologuard result, the [place] [employer] and U.S. Multi-Society Task Force screening guidelines recommend a Cologuard re-screening interval of 3 years. References: [place] [employer] Guideline for Colorectal Cancer Screening: https://www.cancer.org/cancer/fuhzx-xdredm-ylexad/tkldxhkwj-fzboxkgsu-ypdvnmg/ac s-rec ommendations.html.; Johnnie DK, Amaya CR, Janeth GoodenK, Colorectal Cancer Screening: Recommendations for Physicians and Patients from the U.S. Multi-Society Task Force on Colorectal Cancer Screening , Am J Gastroenterology 2017; 112:7378-9915. TEST DESCRIPTION: Composite algorithmic analysis of stool DNA-biomarkers with hemoglobin immunoassay. ?? Quantitative values of individual biomarkers are not reportable and are not associated with individual biomarker result reference ranges. Cologuard is intended for colorectal cancer screening of adults of either sex, 45 years or older, who are at average-risk for colorectal cancer (CRC). Cologuard has been approved for use by the U.S. FDA. The performance of Cologuard was established in a cross sectional study of average-risk adults aged 50-84. Cologuard performance in patients ages 45 to 49 years was estimated by sub-group analysis of near-age groups. Colonoscopies performed for a positive result may find as the most clinically significant lesion: colorectal cancer [4.0%], advanced adenoma (including sessile serrated polyps greater than or equal to 1cm diameter) [20%] or non- advanced adenoma [31%]; or no colorectal neoplasia [45%]. These estimates are derived from a prospective cross-sectional screening study of 10,000 individuals at average risk for colorectal cancer who were screened with both Cologuard and colonoscopy. (Swathi Garvey al, N Engl J Med 2014;370(14):1690-7419.) Cologuard may produce a false negative or false positive result (no colorectal cancer or precancerous polyp present at colonoscopy follow up). A negative Cologuard test result does not guarantee the absence of CRC or advanced adenoma (pre-cancer). The current Cologuard screening interval is every 3 years. ([place] [employer] and U.S. Multi-Society Task Force). Cologuard performance data in a 10,000 patient pivotal study using colonoscopy as the reference method can be accessed at the following location: www.Glance.com/results. Additional description of the Cologuard test process, warnings and precautions can be found at www.colClearbridge Biomedicsrd.[employer]. Stool specimen (specimen) 06/20/2023 7:35 PM EDT 06/23/2023 3:17 AM EDT Enrico Ribeiro MD LAB MOLECULAR DIAG NOSTICS ORDERABLES Final Result Performing Organization Address [facility] Co de Phone Number [employer] (CLIA #:[id number]) [address] [place] [address], * HIV-1 RNA, Quantitative, Real-Time PCR with Reflex to Genotype (RTI, PI, Integrase) (09/19/2022 9:07 AM EST) Pathologist [facility] HIV 1 RNA, QN PCR NOT DETECTED copies/mL [facility], HIV 1 RNA, QN PCR NOT DETECTED Log copies/mL [facility], Comment: REFERENCE RANGE: NOT DETECTED copies/mL ?NOT DETECTED ??Log copies/mL This test was performed using Real-Time Polymerase Chain Reaction. Reportable range is 20 to 10,000,000 copies/mL (1.30-7.00 Log copies/mL). 09/19/2022 9:07 AM EST 09/19/2022 9:08 AM EST Narrative [facility] - 09/22/2022 3:33 PM EST FASTING:YES FASTING: YES Enrico Ribeiro MD LAB BLOOD ORDERABL ES Final Result Performing Organization Address [facility] de Phone Number [facility] [address] [facility], [facility], [place] [address] [facility], [address] [place] [address] * Hepatitis C Antibody with Reflex to HCV, RNA, Quantitative, Real-Time PCR (09/19/2022 9:07 AM EST) Hepatitis C Antibody NON-REACT TSACY NON-REACT STACY [facility] [place] [employer] Index <0.02 <1.00 [facility] [place] [employer] Comment: HCV antibody was non-reactive. There is no laboratory evidence of HCV infection. In most cases, no further action is required. However, if recent HCV exposure is suspected, a test for HCV RNA (test code 99223) is suggested. For additional information please refer to http://education.Buzzoo/faq/UJL53m1 (This link is being provided for informational/ educational purposes only.) Blood Venous blood specimen / Unknown 09/19/2022 9:07 AM EST 09/19/2022 9:08 AM EST Narrative [facility] - 09/22/2022 3:33 PM EST FASTING:YES FASTING: YES Enrico Ribeiro MD LAB BLOOD ORDERABL ES Final Result [address], [facility], [place] [address] [facility] [place] [employer] [address] [place] [address], (Nl2) [place] [address] * THINPREP PAP (03/22/2021 1:03 PM EDT) Pathologist [facility] Clinical Information: [facility] COMMENT SEE COMMENT [facility] Comment: EXPLANATORY NOTE: ? The Pap is a screening test for cervical cancer. It is ?? not a diagnostic test and is subject to false negative ?? and false positive results. It is most reliable when a ?? satisfactory sample, regularly obtained, is submitted ?? with relevant clinical findings and history, and when ?? the Pap result is evaluated along with historic and ?? current clinical information. ?? [employer] : SEE COMMENT [facility] Comment: GSG, CT(ASCP) CT screening location: [address] ??[address] Interpretation/R esult: Negative for intraepithelial lesion or malignancy. [facility] LMP: NONE GIVEN [facility] Prev. BX: NONE [facility]IVEN [facility] Prev. PAP: NONE [facility]IVEN [facility] SOURCE: None given [facility] Statement Of Adequacy: SEE COMMENT [facility] Comment: Satisfactory for evaluation. Endocervical/transformation zone component present. 03/22/2021 1:03 PM EDT [facility] LAB PATHOLOGY ORDERABLES Final Result Performing Organization Address [facility] Co de Phone Number [facility] [address] * HPV mRNA E6/E7 (03/22/2021 1:03 PM EDT) HPV nRNA E6/E7 Not Detected Not Detected [facility] Comment: Methodology: [employer]er-Mediated Amplification This assay detects E6/E7 viral messenger RNA (mRNA) from 14 high-risk HPV types (16,18,31,33,35,39,45,51,52,56,58,59,66,68). ? The analytical performance characteristics of this assay have been determined by [facility]. The modifications have not been cleared or approved by the FDA. This assay has been validated pursuant to the CLIA regulations and is used for clinical purposes. ?? For additional information, please refer to http://education.Xceive.[employer]/faq/QKU086c2 (This link if provided for information/ educational purposes only.) 03/22/2021 1:03 PM EDT Gabrielle Poon [facility] LAB BLOOD ORDERABLES Meredith l Result Performing Organization Address [facility] Co de Phone Number [facility] [address] * DIGITAL BILATERAL SCREEN 1 (09/16/2018 8:13 AM EST) Anatomical Region Laterality Modality Breast Bilateral Mammography 09/16/2018 8:13 AM EST Narrative 09/16/2018 8:15 AM EST Refer to the Notes tab for result details [facility] Procedure: DIGITAL BILATERAL SCREEN 1 Procedure Note Provider, Historical, MD Thakkar 11/18/2022 Refer to the Notes tab for result details [facility] Procedure: DIGITAL BILATERAL SCREEN 1 Patricia Juárez MD IMG BI PROCEDURES Fin al Result from Last 3 Months or Most Recently Relevant to Health Maintenance Insurance [place] [address] STANDARD MEDICARE [address] [place] [address] Care Teams Commercial Account Officer Relationship Specialty Start Date End Date SolizEnrico Torres MD [address] [place] [address] [place] [address] PCP - General Internal Medicine 11/05/19
[2024-11-26 14:34] LABS: Iron 84 mcg/dL (30-160); Percent Iron Saturation 30 % (15-50); Total Iron Binding Capacity 280 mcg/dL (228-428); Unsaturated Iron Binding 196 ug/dL
[2024-11-26 15:05] LABS: Vitamin B12 383 pg/mL (200-900)
== END 2024-11-26 08:20 | disposition home or self-care (01) ==
LOC: HO.CHCLDS 08:19
PROVIDERS: Visit Provider Internal Medicine
DX: D50.9 Iron deficiency anemia, unspecified (principal)
CPT/HCPCS: 36415; 82607; 82746; 83540